=== PATIENT | female | born 1960 | race Caucasian/White ===

== ENCOUNTER 2022-10-20 10:36 | Outpatient (OUT) | payer OTHER, SELFPAY ==
--- NOTE | 2022-10-14 14:35 | ECG_ITS ---
[facility] Test Date: 2022-10-14 Pat Name: ANDREW DOYLE Department: Room: - Gender: Female Service Department Manager: : 1960 Requested By: LESTER SAMANIEGO Order Number: [id number] Reading MD: KAM EDDY Measurements Intervals [place] Rate: 55 P: 1 OR: 168 QRS: 27 QRSD: 89 T: 32 QT: 422 QTc: 404 Interpretive Statements SINUS BRADYCARDIA No previous ECG available for comparison Electronically Signed On 10-15-2022 7:00:08 EDT by AKM EDDY
== END 2022-10-20 10:37 | disposition home or self-care (01) ==
LOC: CARD 10:36
PROVIDERS: PCP Family Medicine
DX: Z01.818 Encounter for other preprocedural examination (principal)
CPT/HCPCS: 93005

== ENCOUNTER 2023-05-12 13:01 | Outpatient (OUT) | payer OTHER, SELFPAY ==
[2023-05-12 13:27] LABS: Basophils Absolute Auto 0.1 10^3/uL (0.0-0.1); Basophils Percent Auto 1.3 % (0.2-2.0); Eosinophils Absolute Auto 0.1 10^3/uL (0.0-0.7); Eosinophils Percent Auto 1.8 % (0.9-7.0); Hematocrit 37.5 % (36.0-48.0); Hemoglobin 12.2 g/dL (12.0-16.0); Immature Granulocytes Abs Auto 0.01 10^3/uL (0.00-0.03); Immature Granulocytes Pct Auto 0.2 % (0.0-0.5); Lymphocytes Absolute Auto 1.6 10^3/uL (1.2-3.8); Lymphocytes Percent Auto 35.8 % (20.5-60.0); Mean Corpuscular HGB Conc 32.5 g/dL (29.9-35.2); Mean Corpuscular Hemoglobin 28.6 pg (26.7-34.0); Mean Platelet Volume 9.9 fL (9.5-13.5); Monocytes Absolute Auto 0.4 10^3/uL (0.3-0.8); Monocytes Percent Auto 8.1 % (1.7-12.0); Neutrophils Absolute Auto 2.4 10^3/uL (1.4-6.5); Neutrophils Percent Auto 52.8 % (43.0-75.0); Platelet Count 309 10^3/uL (150-450); Red Blood Count 4.26 10^6/uL (4.20-5.40); Red Cell Distribution Width 12.7 % (11.0-15.0); White Blood Count 4.5 10^3/uL (4.0-11.0)
== END 2023-05-12 13:02 | disposition home or self-care (01) ==
LOC: LAB 13:06
PROVIDERS: PCP Family Medicine
DX: Z01.812 Encounter for preprocedural laboratory examination (principal); H02.839 Dermatochalasis of unspecified eye, unspecified eyelid
CPT/HCPCS: 36415; 85025

== ENCOUNTER 2023-06-09 15:38 | Outpatient (OUT) | payer OTHER, SELFPAY ==
--- NOTE | 2023-06-09 15:46 | ECG_ITS ---
[facility] Test Date: 2023-06-09 Pat Name: ANDREW DOYLE Department: Room: - Gender: Female Childhood Teacher: : 1960 Requested By: Order Number: [id number] Reading MD: KAM EDDY Measurements Intervals [place] Rate: 60 P: 33 [place]: 166 QRS: 74 QRSD: 100 T: 71 QT: 418 QTc: 418 Interpretive Statements SINUS RHYTHM POSSIBLE RIGHT VENTRICULAR CONDUCTION DELAY [RSR (QR) IN V1/V2] Compared to ECG 10/14/2022 14:43:32 Sinus bradycardia no longer present Electronically Signed On 06-10-2023 6:56:28 EDT by KAM EDDY
== END 2023-06-09 15:39 | disposition home or self-care (01) ==
PROVIDERS: PCP Family Medicine
DX: Z01.818 Encounter for other preprocedural examination (principal); H80.03 Otosclerosis involving oval window, nonobliterative, bilateral
CPT/HCPCS: 36415; 80053; 85025; 93005

== ENCOUNTER 2023-06-09 16:09 | Outpatient (OUT) | payer OTHER, SELFPAY ==
[2023-06-09 16:24] LABS: Basophils Absolute Auto 0.1 10^3/uL (0.0-0.1); Basophils Percent Auto 1.1 % (0.2-2.0); Eosinophils Absolute Auto 0.1 10^3/uL (0.0-0.7); Eosinophils Percent Auto 2.6 % (0.9-7.0); Hematocrit 34.6 % (36.0-48.0); Immature Granulocytes Abs Auto 0.01 10^3/uL (0.00-0.03); Immature Granulocytes Pct Auto 0.2 % (0.0-0.5); Lymphocytes Absolute Auto 1.6 10^3/uL (1.2-3.8); Lymphocytes Percent Auto 29.3 % (20.5-60.0); Mean Corpuscular HGB Conc 31.8 g/dL (29.9-35.2); Mean Corpuscular Hemoglobin 28.6 pg (26.7-34.0); Mean Corpuscular Volume 90.1 fL (81.0-99.0); Mean Platelet Volume 9.3 fL (9.5-13.5); Monocytes Absolute Auto 0.5 10^3/uL (0.3-0.8); Monocytes Percent Auto 9.5 % (1.7-12.0); Neutrophils Percent Auto 57.3 % (43.0-75.0); Platelet Count 303 10^3/uL (150-450); Red Blood Count 3.84 10^6/uL (4.20-5.40); Red Cell Distribution Width 13.3 % (11.0-15.0); White Blood Count 5.3 10^3/uL (4.0-11.0)
[2023-06-09 16:57] LABS: Alanine Aminotransferase 17 U/L (14-59); Albumin Globulin Ratio 0.9; Albumin Level 3.5 g/dL (3.4-5.0); Alkaline Phosphatase 77 U/L (46-116); Anion Gap 11.4; Aspartate Amino Transferase 16 U/L (15-37); BUN Creatinine Ratio 24.6; Bilirubin Total 0.4 mg/dL (0.2-1.0); Calcium 8.9 mg/dL (8.5-10.1); Carbon Dioxide 31.6 mmol/L (21.0-32.0); Chloride 102 mmol/L (98-107); Estimated GFR (African America >60 (>=60); Estimated GFR (Non-African Ame >60 (>=60); Globulin 3.8 g/dL; Glucose 107 mg/dL (74-106); Sodium 141 mmol/L (136-145); Total Protein 7.3 g/dL (6.4-8.2)
== END 2023-06-09 16:10 | disposition home or self-care (01) ==
LOC: LAB 16:13
PROVIDERS: PCP Family Medicine
DX: Z01.818 Encounter for other preprocedural examination (principal); H80.03 Otosclerosis involving oval window, nonobliterative, bilateral
CPT/HCPCS: 36415; 80053; 85025